=== PATIENT | female | born 1995 | race Caucasian/White ===

== ENCOUNTER 2023-04-26 20:57 | Emergency (ER) | payer BC ==
[~2023-04-26] VITALS: Ht 170.2 cm; Wt 127.0 kg
[2023-04-26 21:12] VITALS: BP_SYST 145; PULSE 74; RESP 16; TEMP 98.3; O2SAT 99
--- NOTE | 2023-04-26 21:43 | NUR ---
Patient to ER bed 7 to gown for evaluation. Side rails up. Report given to TAMANNA MONTES.
--- NOTE | 2023-04-26 21:54 | NUR ---
URINE SAMPLE COLLECTED
--- NOTE | 2023-04-26 22:00 | NUR ---
Pt bib partner. c/o chronic back pain. Pt states to have hx of hernia disc, is unaware exactly where, but has had hx of chronic back pain for the past 2 years. Pt states pain is usually on L side, but last night started unexpected in R side. Pt states pain 10/10. Pt states pain exacerbates with activity. Pt states to have pain management doctor. Pt denies N/V/D. Pt afebrile. Pt VSS. Pt AAOX4. Skin dry and intact. Pt RR even and unlabored. Pt in bed wtih side rails up. Pt partner at bedside.
[2023-04-26 22:42] LABS: BILIRUBIN,URINE NEGATIVE (NEGATIVE); BLOOD, URINE NEGATIVE (NEGATIVE); CLARITY/URINE SLIGHTLY HAZY (CLEAR); COLOR,URINE YELLOW (YELLOW); GLUCOSE,URINE NEGATIVE (NEGATIVE); KETONES,URINE NEGATIVE (NEGATIVE); LEUKOCYTE ESTERASE ,URINE NEGATIVE (NEGATIVE); NITRITE, URINE NEGATIVE (NEGATIVE); PH,URINE 6.5 (5.0-8.0); PROTEIN URINE NEGATIVE (NEGATIVE); UROBILINOGEN,URINE 0.2 (0.2-1.0)
--- NOTE | 2023-04-26 22:59 | NUR ---
[place] in [facility] - 04/26/23 at 2259 by [email or web address] MILVIA Kelly at bedside examining patient.
[2023-04-26] MEDS ORDERED: KETOROLAC TROMETHAMINE 30 MG VIAL IM ONE (23:15)
[2023-04-26] MEDS ORDERED: OXYCODONE/ACETAMINOPHEN 5-325 TABLET PO ONE (23:15)
[2023-04-26] MEDS ORDERED: methocarbamoL 500 MG TABLET PO ONE (23:15)
[2023-04-26] MEDS ORDERED: LIDOCAINE PATCH 5% 1 EA TP ONE (23:15)
--- NOTE | 2023-04-26 23:23 | NUR ---
ER at bedside examining patient.
--- NOTE | 2023-04-27 00:12 | NUR ---
pain medication effective. Pt 10/03 pain.
[2023-04-27] MEDS ORDERED: NAPR-690 PO (00:16)
[2023-04-27] MEDS ORDERED: METH-634 PO (00:16)
[2023-04-27] MEDS ORDERED: LIDO700A30 TP (00:16)
[2023-04-27] MEDS ORDERED: ACET325T53 PO (00:16)
--- NOTE | 2023-04-27 00:28 | NUR ---
Patient given written and verbal discharge instructions and verbalizes understanding. ER MD discussed with patient the results and treatment provided. Patient in stable condition. ID arm band removed. Rx of TYLENOL REGULAR LIDOCAINE ROBAXIN NAPROXEN given. Patient educated on pain management and to follow up with PMD. Pain Scale 1/10 Opportunity for questions provided and answered. Medication side effect fact sheet provided.
[2023-04-27 00:29] VITALS: BP_SYST 130; PULSE 62; RESP 15; TEMP 96.7; O2SAT 99
== END 2023-04-27 00:29 | disposition home or self-care (01) ==
LOC: SED 20:57
DX: M54.50 Low back pain, unspecified (principal); Z79.899 Other long term (current) drug therapy
CPT/HCPCS: 99284; 81025; 96372; 81003; J1885

== ENCOUNTER 2023-05-10 12:01 | Emergency (ER) | payer BC ==
[~2023-05-10] VITALS: Ht 170.2 cm; Wt 131.5 kg
[~2023-05-10 12:01] MED LIST: ACET325T53 PO; LIDO700A30 TP; METH-634 PO; NAPR-690 PO
[2023-05-10 12:17] VITALS: BP_SYST 103; PULSE 97; RESP 20; TEMP 98.3; O2SAT 95
[2023-05-10 13:22] LABS: CLARITY/URINE CLEAR (CLEAR); COLOR,URINE YELLOW (YELLOW); PH,URINE 7.5 (5.0-8.0)
[2023-05-10 13:23] LABS: BILIRUBIN,URINE NEGATIVE (NEGATIVE); BLOOD, URINE TRACE (NEGATIVE); GLUCOSE,URINE NEGATIVE (NEGATIVE); KETONES,URINE NEGATIVE (NEGATIVE); LEUKOCYTE ESTERASE ,URINE NEGATIVE (NEGATIVE); NITRITE, URINE NEGATIVE (NEGATIVE); PROTEIN URINE NEGATIVE (NEGATIVE); UROBILINOGEN,URINE 0.2 (0.2-1.0)
[2023-05-10 13:25] LABS: BACTERIA,URINE RARE /HPF (None Seen); MUCUS,URINE 1+ /LPF (None Seen); RBC,URINE 0-3 /HPF (0-3); URINE AMORPHOUS PHOSPHATES 1+ /HPF (None Seen); WBC,URINE 0-3 /HPF (0-3)
[2023-05-10 13:26] LABS: BASOPHILS # (AUTO) 0.1 K/uL (0.0-0.2); BASOPHILS % (AUTO) 1.2 % (0.0-2.0); EOSINOPHILS # (AUTO) 0.1 K/uL (0.0-0.4); EOSINOPHILS % (AUTO) 0.9 % (0.0-4.0); HEMATOCRIT 37.5 % (36-48); HEMOGLOBIN 11.9 g/dL (12.0-16.0); LYMPHOCYTES # (AUTO) 2.7 K/uL (1.0-5.5); LYMPHOCYTES % (AUTO) 22.2 % (20.5-51.5); MEAN CORPUSCULAR HEMOGLOBIN 28 pg (27-31); MEAN CORPUSCULAR HGB CONC 32 % (32-36); MEAN CORPUSCULAR VOLUME 87 fL (79.0-98.0); MONOCYTES # (AUTO) 0.9 K/uL (0.0-1.0); MONOCYTES % (AUTO) 7.1 % (1.7-9.3); NEUTROPHILS # (AUTO) 8.4 K/uL (1.8-7.7); NEUTROPHILS % (AUTO) 68.6 % (40.0-70.0); PLATELET COUNT (AUTO) 225 K/uL (130-430); RED BLOOD CELL COUNT(AUTO) 4.31 MIL/uL (4.2-6.2); RED CELL DISTRIBUTION WIDTH 14.9 % (9.0-15.0); WHITE BLOOD COUNT (AUTO) 12.2 K/uL (4.8-10.8)
[2023-05-10 13:42] LABS: CREATININE 0.56 mg/dL (0.55-1.30)
[2023-05-10 13:47] LABS: ALBUMIN 3.6 g/dL (3.4-4.8); TOTAL BILIRUBIN 0.2 mg/dL (0.0-1.0); TOTAL PROTEIN, SERUM 7.5 g/dL (6.4-8.3)
[2023-05-10] MEDS ORDERED: KETOROLAC TROMETHAMINE 60 MG/2 ML VIAL IM ONE (14:15)
[2023-05-10] MEDS ORDERED: HYDROcodone/ACETAMIN 10-325 MG TAB PO ONE (16:00)
[2023-05-10] MEDS ORDERED: METR-154 PO (16:26)
[2023-05-10] MEDS ORDERED: TRAM50TA2 PO (16:26)
[2023-05-10] MEDS ORDERED: SULF1TAB48 PO (16:26)
[2023-05-10] MEDS ORDERED: IBUP-1971 PO (16:26)
[2023-05-10 18:31] VITALS: BP_SYST 103; PULSE 97; RESP 20; TEMP 98.3; O2SAT 95
== END 2023-05-10 18:31 | disposition home or self-care (01) ==
LOC: SED 12:01
DX: K52.9 Noninfective gastroenteritis and colitis, unspecified (principal); G89.29 Other chronic pain; M54.50 Low back pain, unspecified; E66.9 Obesity, unspecified; K76.0 Fatty (change of) liver, not elsewhere classified; Z79.899 Other long term (current) drug therapy
CPT/HCPCS: 99285; 72131; 80053; 81000; 85025; 36415; 76376; 74176; 81025; 96372; J1885